=== PATIENT | male | born 1990 | race African-American/Black ===

== ENCOUNTER 2020-12-17 13:27 | Emergency (ER) | payer SELFPAY ==
[~2020-12-17] VITALS: Ht 185.4 cm; Wt 93.4 kg
[2020-12-17 13:27] VITALS: BP 126/69
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
[2020-12-17] MEDS ORDERED: NACL 0.9% 1,000 ML IV ONE (14:15)
--- NOTE | 2020-12-17 14:15 | NUR ---
PA JIMENEZ AT BEDSIDE EVALUATING PT
--- NOTE | 2020-12-17 15:55 | NUR ---
PT SLEEPING IN BED WITH EVEN AND UNLABORED RESPIRATIONS
[2020-12-17 16:25] VITALS: BP 119/69
--- NOTE | 2020-12-17 16:25 | NUR ---
Patient discharged with v/s stable. Written and verbal after care instructions ABOUT CANNABIS USE DISORDER AND WEAKNESS given and explained. Patient verbalized understanding. Ambulatory with steady gait. All questions addressed prior to discharge. Advised to follow up with PMD.
== END 2020-12-17 16:25 | disposition home or self-care (01) ==
LOC: MED 13:27
DX: R53.83 Other fatigue (principal); T50.995A Adverse effect of other drugs, medicaments and biological substances, initial encounter; Y92.89 Other specified places as the place of occurrence of the external cause
CPT/HCPCS: 82948; 96360; 99283; J7030